=== PATIENT | male | born 1995 | race Caucasian/White ===

== ENCOUNTER 2017-01-17 14:30 | Emergency (ER) | payer BC ==
[2017-01-17] MEDS ORDERED: Ondansetron INJ* 2 MG/ML VIAL IV ONE (17:38)
[2017-01-17] MEDS ORDERED: NS 0.9% 1000 ML* 1,000 ML IV ONE ×3 (17:38→19:32)
[2017-01-17 18:19] LABS: Hematocrit 47 % (42-52); Hemoglobin 15.6 g/dl (14.0-18.0); Mean Corpuscular HGB Conc 33 g/dl (31-36); Mean Corpuscular Hemoglobin 29 pg (27-31); Mean Corpuscular Volume 86 fL (80-94); Mean Platelet Volume 8 um3 (7.4-10.4); Red Blood Count 5.47 10^6/ul (4.0-5.4); Red Cell Distribution Width 13 % (10.5-15); White Blood Count 8.2 10^3/ul (3.5-10.8)
[2017-01-17 18:32] LABS: Albumin 4.4 g/dL (3.2-5.2); BUN/Creatinine Ratio 19.5 (8-20); C Reactive Protein 12.09 mg/L (< 5.00); EGFR African American 141.1 (>60); EGFR Non-African American 109.7 (>60); Globulin 2.4 g/dL (2-4); Potassium 3.8 mmol/L (3.5-5.0); Total Protein 6.8 g/dL (6.4-8.9)
[2017-01-17] MEDS: Ondansetron ODT TAB* 4 MG PO ONE ×2 (18:44→21:23)
[2017-01-17 20:42] LABS: Urine Bilirubin Negative (Negative); Urine Glucose Negative (Negative); Urine Nitrite Negative (Negative)
--- NOTE | 2017-01-17 21:06 | ED ---
Santiago Tay Nilda, scribed for Jenae Mcafdden MD on 01/17/17 at 1823 . GI/ HPI - HPI Summary HPI Summary: This patient is a 21 year old M presenting [facility] accompanied by roommate with a chief complaint of constant abd pain with N/V/D since waking up this morning. The patient rates the pain 5/10 in severity. Symptoms aggravated by food and alleviated by nothing. Patient reports that he vomited 3x and had 1x diarrhea. Recent sick contact with roommate who had Norovirus a few days ago. - History of Current Complaint Chief Complaint: EDNauseaVomitDiarrh Time Seen by Provider: 01/17/17 17:37 Stated Complaint: VOMITING BLOOD Hx Obtained From: Patient Timing: Constant Current Severity: Moderate Pain Intensity: 6 Location of Pain: Diffuse Associated Signs and Symptoms: Positive: Other: - N/V/D Aggravating Factor(s): Food Alleviating Factor(s): Nothing - Allergy/Home Medications Allergies/Adverse Reactions: Allergies Allergy/AdvReac Type Severity Reaction Status Date / Time Eggs or Egg-derived Products AdvReac Vomiting Verified 01/17/17 17:55 dairy and nuts Allergy Swelling Uncoded 01/17/17 17:55 Of Face,Lips,& Throat PMH/Surg Hx/FS Hx/Imm Hx Respiratory History: Reports: Hx Asthma Sensory History: Reports: Hx Contacts or Glasses Opthamlomology History: Reports: Hx Contacts or Glasses - Surgical History Surgery Procedure, Year, and Place: none Infectious Disease History: No Infectious Disease History: Denies: Traveled Outside the [place] in Last 30 Days - Family History Known Family History: Negative: Hypertension - Social History Occupation: Student Lives: Dormitory/Roommates Alcohol Use: Rare Substance Use Type: Reports: None Smoking Status (MU): Never Smoked Tobacco Review of Systems Negative: Shortness Of Breath Positive: Abdominal Pain, Vomiting, Diarrhea, Nausea All Other Systems Reviewed And Are Negative: Yes Physical Exam - Summary Physical Exam Summary: General: Well appearing, no pain distress Skin: Warm, Skin Color Reflects Adequate Perfusion, Dry Eyes: EOMI, HARSH, Dry mucous membrane ENT: Pharynx normal, TMs normal Neck: Supple, nontender Respiratory: CTA, breath sounds present, no rhonchi, no wheezes, no rales Cardiovascular: RRR, no murmur, no rub, no gallop Abdomen: Soft, nontender, Non-distended, no guarding, no rebound Bowel: Present Musculoskeletal: JOIE, No edema Neuro: Sensory/motor intact, A&Ox3, CN intact 2-12 Psych: Affect/mood appropriate Triage Information Reviewed: Yes Vital Signs On Initial Exam: Initial Vitals Temp Pulse Resp BP Pulse Ox 99.7 F 125 20 108/58 100 01/17/17 14:43 01/17/17 14:43 01/17/17 14:43 01/17/17 14:43 01/17/17 14:43 Vital Signs Reviewed: Yes - Susana Coma Scale Coma Scale Total: 15 Diagnostics - Vital Signs Vital Signs Temp Pulse Resp BP Pulse Ox 01/17/17 16:22 97.8 F 54 20 95/66 100 01/17/17 14:43 99.7 F 125 20 108/58 100 - Laboratory Lab Results: Lab Results 01/17/17 01/17/17 01/17/17 Range/Units 17:46 17:46 20:30 WBC 8.2 (3.5-10.8) 10^3/ul RBC 5.47 H (4.0-5.4) 10^6/ul Hgb 15.6 (14.0-18.0) g/dl Hct 47 (42-52) % MCV 86 (80-94) fL MCH 29 (27-31) pg MCHC 33 (31-36) g/dl RDW 13 (10.5-15) % Plt Count 186 (150-450) 10^3/ul MPV 8 (7.4-10.4) um3 Neut % (Auto) 90.1 H (38-83) % Lymph % (Auto) 3.0 L (25-47) % [place] % (Auto) 6.4 (1-9) % Eos % (Auto) 0.1 (0-6) % Baso % (Auto) 0.4 (0-2) % Absolute Neuts (auto) 7.4 (1.5-7.7) 10^3/ul Absolute Lymphs (auto) 0.2 L (1.0-4.8) 10^3/ul Absolute Monos (auto) 0.5 (0-0.8) 10^3/ul Absolute Eos (auto) 0 (0-0.6) 10^3/ul Absolute Basos (auto) 0 (0-0.2) 10^3/ul Absolute Nucleated RBC 0 10^3/ul Nucleated RBC % 0 Sodium 138 (133-145) mmol/L Potassium 3.8 (3.5-5.0) mmol/L Chloride 103 (101-111) mmol/L Carbon Dioxide 30 (22-32) mmol/L Anion Gap 5 (2-11) mmol/L BUN 17 (6-24) mg/dL Creatinine 0.87 (0.67-1.17) mg/dL Est GFR ( Amer) 141.1 (>60) Est GFR (Non-Af Amer) 109.7 (>60) BUN/Creatinine Ratio 19.5 (8-20) Glucose 105 H (70-100) mg/dL Calcium 9.0 (8.6-10.3) mg/dL Total Bilirubin 1.00 (0.2-1.0) mg/dL AST 22 (13-39) U/L ALT 46 (7-52) U/L Alkaline Phosphatase 79 (34-104) U/L C-Reactive Protein 12.09 H (< 5.00) mg/L Total Protein 6.8 (6.4-8.9) g/dL Albumin 4.4 (3.2-5.2) g/dL Globulin 2.4 (2-4) g/dL Albumin/Globulin Ratio 1.8 (1-3) Lipase 18 (11.0-82.0) U/L Urine Color Yellow Urine Appearance Clear Urine pH 7.0 (5-9) Ur Specific [place] 1.013 (1.010-1.030) Urine Protein Negative (Negative) Urine Ketones Trace H (Negative) Urine Blood Negative (Negative) Urine Nitrate Negative (Negative) Urine Bilirubin Negative (Negative) Urine Urobilinogen Negative (Negative) Ur Leukocyte Esterase Negative (Negative) Urine Glucose Negative (Negative) Result Diagrams: 01/17/17 17:46 01/17/17 17:46 Lab Statement: Any lab studies that have been ordered have been reviewed, and results considered in the medical decision making process. Re-Evaluation - Re-Evaluation First Eval Re-Evaluation Time: 19:33 Comment: Pt needs one more liter of fluid b/c heart rate still elevated and he does not have to urinate yet. Second Eval Re-Evaluation Time: 20:57 Comment: Pt has improved and feel better. Still is tachycardic but pt notes he feels anxious because of all of the needles. GIGU Course/Dx - Course Course Of Treatment: 21 yo male with room mate with gastroenteritis over break now with same symptoms today after 3 l of fluid he is urinating and his hr is down to 100-104 he is feeling much better and wants to go home and will f/u at [place] - Diagnoses Provider Diagnoses: Gastroenteritis Discharge - Discharge Plan Condition: Stable Disposition: HOME Prescriptions: Ondansetron ODT TAB* [Zofran 4 MG Odt TAB*] 4 mg PO Q8H PRN #10 tab.odt PRN Reason: Nausea Patient Education Materials: Gastroenteritis (ED) [facility] Days Additional Instructions: RETURN TO THE EMERGENCY DEPARTMENT FOR CHANGING OR WORSENING SYMPTOMS. The documentation as recorded by the Santiago worley Nilda accurately reflects the service I personally performed and the decisions made by me, Jenae Mcfadden MD.
[2017-01-17 21:19] VITALS: BP 115/46
== END 2017-01-17 21:20 | disposition home or self-care (01) ==
LOC: ED 14:30
DX: K52.9 Noninfective gastroenteritis and colitis, unspecified (principal)
CPT/HCPCS: 36415; 80053; 81003; 83690; 85025; 86140; 87040; 96360; 96374; 99284; A9270-GY; J2405